=== PATIENT | female | born 1935 | race Caucasian/White ===

== ENCOUNTER 2022-07-05 13:47 | Outpatient (CLI) | payer MEDICARE, OTHER | END 2022-07-05 23:59 | disposition short-term general hospital (02) | LOC: EMS 13:47 | DX: R07.89 Other chest pain (principal); R11.0 Nausea; I49.9 Cardiac arrhythmia, unspecified | CPT/HCPCS: A0425; A0427 ==

== ENCOUNTER 2022-12-03 10:19 | Outpatient (CLI) | payer MEDICARE, OTHER ==
--- NOTE | 2022-12-03 14:36 | DEXA Report ---
PROCEDURE: Dexa Spine and/or Hip INDICATIONS: POST MENOPAUSAL TECHNIQUE: Dual energy x-ray absorptiometry (DXA) was performed on a ZAP System. Regions measur ed are the AP Spine, femoral neck, and if needed forearm. COMPARISON: None. FINDINGS: Lumbar Spine: Bone Mineral Density 1.506 g/cm/cm,T score 2.3. Left Femoral Neck: Bone Mineral Density 0.795 g/cm/cm, T score -1.7. Left Hip: Bone Mineral Density 0.807 g/cm/cm,T score -1.6. (T score greater or equal to -1.0: NORMAL) (T score from -1.1 to -2.4: OSTEOPENIA) (T score less than or equal to -2.5 to: OSTEOPOROSIS) Unable to compare with the prior examination dated 07/16/2012. Impression: By WHO criteria, this patient has osteopenia. Patients with diagnosis of osteoporosis or osteopenia should have regular bone mineral density assess ment. For those eligible for Medicare, routine testing is allowed once every 2 years. Testing frequ ency can be increased for patients who have rapidly progressing disease or for those who are receivin g medical therapy to restore bone mass. Reviewed by: Nabila Louis MD on 12/03/2022 2:34 PM PDT Approved by: Nabila Louis MD on 12/03/2022 2:34 PM PDT Station ID: [id number]
== END 2022-12-03 10:20 | disposition home or self-care (01) ==
LOC: DI 10:19
PROVIDERS: ATTEND Internal Medicine
DX: M85.89 Other specified disorders of bone density and structure, multiple sites (principal); N95.9 Unspecified menopausal and perimenopausal disorder

== ENCOUNTER 2023-05-26 13:05 | Outpatient (CLI) | payer MEDICARE, OTHER ==
--- NOTE | 2023-05-26 14:21 | XRAY Report ---
PROCEDURE: Lumbar Spine 2-3V INDICATIONS: LOW BACK PAIN, UNSPECIFIED TECHNIQUE: 3 views of the lumbar spine were acquired. COMPARISON: None. FINDINGS: Bones: 5 [id number] vertebrae are present. There is prominent levoconvex scoliotic curvature w ith the lumbar spine with apex at L3. Multilevel degenerative disc and foraminal narrowing are presen t. No vertebral body compression fractures. No suspicious bony lesions. Soft tissues: Overlying bowel gas pattern is normal. No suspicious soft tissue calcifications. IMPRESSION: Scoliotic curvature as well as multilevel degenerative changes as above. Reviewed by: Merry Alcantara MD on 05/26/2023 2:20 PM PST Approved by: Merry Alcantara MD on 05/26/2023 2:20 PM PST Station ID: [id number]
--- NOTE | 2023-05-26 14:23 | XRAY Report ---
PROCEDURE: Sacrum/Coccyx INDICATIONS: LOW BACK PAIN, UNSPECIFIED TECHNIQUE: 2 views of the sacrum and coccyx acquired. COMPARISON: None. FINDINGS: Bones: No fractures or dislocations. No suspicious bony lesions. There is levoconvex scoliotic cur vature within the lumbar spine. Degenerative changes are present within the hip. Soft tissues: Visualized bowel gas pattern is normal. No suspicious soft tissue densities. IMPRESSION: Degenerative changes within the lumbar spine as well as bilaterally. Reviewed by: Merry Alcantara MD on 05/26/2023 2:21 PM PST Approved by: Merry Alcantara MD on 05/26/2023 2:21 PM PST Station ID: [id number]
== END 2023-05-26 13:06 | disposition home or self-care (01) ==
LOC: DI.N 13:05
PROVIDERS: ATTEND Internal Medicine
DX: M47.816 Spondylosis without myelopathy or radiculopathy, lumbar region (principal); M16.0 Bilateral primary osteoarthritis of hip; M48.061 Spinal stenosis, lumbar region without neurogenic claudication